=== PATIENT | female | born 1975 | race American Indian/Alaskan Native ===

== ENCOUNTER → 2018-04-05 | Outpatient (CLI) | payer OTHER ==
[~2018-04-05] MED LIST: ACET325S PR; ALUMAG30SU PO; ASCO500 PO; BACPOLTO30 TP; BISA10S PR; CEPH500 PO; CIPR500 PO; CVS DISPOSABLE399 ML PR; DIAZ2 PO; DIPHTC TOP; DOUBLE ANTIBI28.4 GM TP; FERR325 PO; FINACEA 15% TOP; FLUC150A PO; HYDACE5 PO; LACT10SY PO; LORA10; LORA10 PO; NITR100CA PO; NYST100TC TOP; ONDA4ODT MM; PERIDEX15 ML MM; POLY17UD PO; RANI150 PO; RXONDA4ODT MM; SULTRIDS PO; SULTRISS PO; TAMS.4ER PO; TIZA4 PO; Ventolin Soln3 ML; WAX BOTHEARS; Zithromax250 MG PO; [UNRECOGNIZED DRUG - CODE] TOP; [UNRECOGNIZED DRUG - OTHER]; [UNRECOGNIZED DRUG - OTHER]; [UNRECOGNIZED DRUG - OTHER] TP
[2018-04-05 19:16] LABS: Source, Urine Catheter
[2018-04-05 19:29] LABS: Bilirubin, Urine Neg (Neg); Blood, Urine Neg (Neg); Glucose Qualitative, Urine Neg (Neg); Ketones, Urine Neg (Neg); Leukocyte Esterase, Urine Neg (Neg); Nitrite, Urine Neg (Neg); Protein, Urine Neg (Neg); Urobilinogen, Urine NORM (Normal)
[2018-04-05 19:43] LABS: Appearance, Urine Clear (Clear); Color, Urine Pale Yellow (P-Yellow)
== END | disposition home or self-care (01) ==
LOC: LAB SHORT 11:45 → LAB 11:45
PROVIDERS: Nurse Practitioner Family
DX: R33.9 Retention of urine, unspecified (principal)
CPT/HCPCS: 81003

== ENCOUNTER 2019-02-16 15:14 | Emergency (ER) | payer OTHER ==
[~2019-02-16] VITALS: Ht 152.4 cm; Wt 47.6 kg
[2019-02-16 16:18] LABS: Source, Urine Catheter
[2019-02-16 16:52] LABS: Appearance, Urine Clear (Clear); Bilirubin, Urine Neg (Neg); Blood, Urine Neg (Neg); Color, Urine Yellow (P-Yellow); Glucose Qualitative, Urine Neg (Neg); Ketones, Urine Neg (Neg); Leukocyte Esterase, Urine Neg (Neg); Nitrite, Urine Neg (Neg); Protein, Urine Neg (Neg); Urobilinogen, Urine NORM (Normal)
== END 2019-02-16 17:32 | disposition home or self-care (01) ==
LOC: ER 15:14
PROVIDERS: Physician Assistant
DX: R33.9 Retention of urine, unspecified (principal)
CPT/HCPCS: 51702; 51798; 81003; 99283-25

== ENCOUNTER → 2019-03-10 | Outpatient (CLI) | payer OTHER | END | disposition home or self-care (01) | LOC: LAB SHORT 17:04 → LAB EV 17:04 | DX: R33.9 Retention of urine, unspecified (principal) | CPT/HCPCS: 87086 ==

== ENCOUNTER 2019-11-08 14:38 | Emergency (ER) | payer OTHER ==
[~2019-11-08] VITALS: Ht 147.3 cm; Wt 46.3 kg
== END 2019-11-08 16:32 | disposition home or self-care (01) ==
LOC: ER 14:38
DX: R33.9 Retention of urine, unspecified (principal); Z91.048 Other nonmedicinal substance allergy status; Z88.0 Allergy status to penicillin; Z88.8 Allergy status to other drugs, medicaments and biological substances; Z79.899 Other long term (current) drug therapy; Z79.51 Long term (current) use of inhaled steroids
CPT/HCPCS: 51701; 51798; 99283-25

== ENCOUNTER 2019-11-26 17:35 | Emergency (ER) | payer OTHER ==
[~2019-11-26] VITALS: Ht 154.9 cm; Wt 48.3 kg
[2019-11-26 18:59] LABS: Source, Urine Catheter
[2019-11-26 19:07] LABS: Appearance, Urine Clear (Clear); Bilirubin, Urine Neg (Neg); Blood, Urine Neg (Neg); Color, Urine Yellow (P-Yellow); Glucose Qualitative, Urine Neg (Neg); Ketones, Urine Neg (Neg); Leukocyte Esterase, Urine Neg (Neg); Nitrite, Urine Neg (Neg); Protein, Urine Neg (Neg); Specific Gravity, Urine 1.015 (1.003-1.022); Urobilinogen, Urine NORM (Normal)
== END 2019-11-26 20:08 | disposition home or self-care (01) ==
LOC: ER 17:35
PROVIDERS: Emergency Medicine
DX: R33.9 Retention of urine, unspecified (principal); G80.9 Cerebral palsy, unspecified; Z91.048 Other nonmedicinal substance allergy status; Z88.0 Allergy status to penicillin; Z79.899 Other long term (current) drug therapy; Z79.51 Long term (current) use of inhaled steroids
CPT/HCPCS: 51702; 51798; 81003; 99283-25

== ENCOUNTER 2019-12-11 13:40 | Emergency (ER) | payer OTHER | END 2019-12-11 14:13 | disposition left against medical advice (07) | LOC: ER 13:40 | DX: Z53.21 Procedure and treatment not carried out due to patient leaving prior to being seen by health care provider (principal) ==

== ENCOUNTER → 2020-02-02 | Outpatient (CLI) | payer OTHER | END | disposition home or self-care (01) | LOC: LAB EV 13:00 → LAB SHORT 13:00 | DX: R33.9 Retention of urine, unspecified (principal) | CPT/HCPCS: 87086 ==

== ENCOUNTER → 2020-02-26 | Outpatient (CLI) | payer OTHER | END | disposition home or self-care (01) | LOC: LAB EV 19:34 → LAB SHORT 19:34 → LAB 19:34 | DX: R33.9 Retention of urine, unspecified (principal) | CPT/HCPCS: 87077; 87086; 87186 ==

== ENCOUNTER 2020-04-08 22:58 | Emergency (ER) | payer OTHER ==
[~2020-04-08] VITALS: Ht 157.5 cm; Wt 65.8 kg
== END 2020-04-09 00:40 | disposition home or self-care (01) ==
LOC: ER 22:58
DX: R33.9 Retention of urine, unspecified (principal); Z88.0 Allergy status to penicillin; Z91.048 Other nonmedicinal substance allergy status; Z88.8 Allergy status to other drugs, medicaments and biological substances; Z79.899 Other long term (current) drug therapy; M06.9 Rheumatoid arthritis, unspecified; G80.9 Cerebral palsy, unspecified
CPT/HCPCS: 51798; 99283-25

== ENCOUNTER 2020-08-30 18:13 | Emergency (ER) | payer OTHER ==
[~2020-08-30] VITALS: Ht 154.9 cm; Wt 49.0 kg
[2020-08-30] MEDS ORDERED: HYDROCODONE-AC1 EAC5 PO (20:42)
== END 2020-08-30 21:26 | disposition home or self-care (01) ==
LOC: ER 18:13
DX: M25.551 Pain in right hip (principal); G89.29 Other chronic pain; Z91.09 Other allergy status, other than to drugs and biological substances; Z88.0 Allergy status to penicillin; Z88.8 Allergy status to other drugs, medicaments and biological substances; Z79.899 Other long term (current) drug therapy
CPT/HCPCS: 73502; 99283-25; A9270-GY

== ENCOUNTER 2021-06-13 14:36 | Emergency (ER) | payer OTHER ==
[~2021-06-13] VITALS: Ht 154.9 cm; Wt 54.4 kg
[~2021-06-13 14:36] MED LIST changes: +HYDROCODONE-AC1 EAC5 PO
[2021-06-13] MEDS ORDERED: Ventolin5 MG/1 ML INH (15:36)
[2021-06-13] MEDS ORDERED: AEROECLIPSE II1 EACH NEB (15:36)
[2021-06-14] MEDS ORDERED: ALBU2.5V5 INH (09:51)
== END 2021-06-13 20:36 | disposition home or self-care (01) ==
LOC: ER 14:36
DX: U07.1 COVID-19 (principal); E86.0 Dehydration; Z91.09 Other allergy status, other than to drugs and biological substances; Z88.0 Allergy status to penicillin; Z88.8 Allergy status to other drugs, medicaments and biological substances; Z79.899 Other long term (current) drug therapy
CPT/HCPCS: 36415; 96360; 99284-25; J7030

== ENCOUNTER 2021-12-13 05:55 | Emergency (ER) | payer OTHER ==
[~2021-12-13] VITALS: Ht 147.3 cm; Wt 45.4 kg
[~2021-12-13 05:55] MED LIST changes: +AEROECLIPSE II1 EACH NEB; +ALBU2.5V5 INH; +Ventolin5 MG/1 ML INH
== END 2021-12-13 09:40 | disposition home or self-care (01) ==
LOC: ER 05:55
DX: R34 Anuria and oliguria (principal); E86.0 Dehydration; Z88.0 Allergy status to penicillin; Z91.048 Other nonmedicinal substance allergy status
CPT/HCPCS: 51798; 99283

== ENCOUNTER 2023-01-30 18:21 | Emergency (ER) | payer OTHER ==
[~2023-01-30] VITALS: Ht 154.9 cm; Wt 113.0 kg
== END 2023-01-30 19:31 | disposition home or self-care (01) ==
LOC: ER 18:21
DX: R33.9 Retention of urine, unspecified (principal); G80.9 Cerebral palsy, unspecified; Z88.8 Allergy status to other drugs, medicaments and biological substances; Z91.09 Other allergy status, other than to drugs and biological substances; Z88.0 Allergy status to penicillin
CPT/HCPCS: 99282

== ENCOUNTER → 2023-07-21 | Outpatient (CLI) | payer OTHER ==
[2023-07-22 07:57] LABS: Candida species (DNA Probe) Negative (NEGATIVE); G. vaginalis (DNA Probe) Positive (NEGATIVE); T. vaginalis (DNA Probe) Negative (NEGATIVE)
== END ==
LOC: LAB 15:24 → LAB SHORT 15:24
PROVIDERS: Family Medicine
DX: N89.8 Other specified noninflammatory disorders of vagina (principal)
CPT/HCPCS: 87480; 87510; 87660

== ENCOUNTER → 2025-08-20 | Outpatient (CLI) | payer OTHER ==
[2025-08-20 08:29] LABS: Source, Urine Straight Cath
[2025-08-20 09:33] LABS: Bilirubin, Urine Neg (Neg); Color, Urine Yellow (P-Yellow); Glucose Qualitative, Urine Neg (Neg); Ketones, Urine Neg (Neg); Leukocyte Esterase, Urine Neg (Neg); Protein, Urine 1+ (Neg); Specific Gravity, Urine 1.025 (1.003-1.022); Urobilinogen, Urine NORM (Normal)
[2025-08-20 09:45] LABS: Red Blood Cells, Urine Not Seen /hpf (0-2); White Blood Cells, Urine 0-2 /hpf (0-5)
== END ==
LOC: LAB SHORT 08:05 → LAB 08:05
PROVIDERS: Family Medicine
DX: R82.90 Unspecified abnormal findings in urine (principal)
CPT/HCPCS: 81001; 87077; 87086; 87186